=== PATIENT | male | born 1945 | race Caucasian/White ===

== ENCOUNTER 2017-10-08 13:17 | Emergency (ER) | payer MEDICARE, OTHER ==
[~2017-10-08] VITALS: Ht 185.4 cm; Wt 90.9 kg
[~2017-10-08 13:17] MED LIST: CITA20TA11 PO; CLOP75TA35 PO; FENO145T19 PO; GLIM1TAB46 PO; LANTUS SQ; LISI-600 PO; METF500T PO; NORCO10T PO; ROSU20TA PO; VARD10TA PO
[2017-10-08] MEDS ORDERED: normal saline 1000ML IV soln IV ONE (14:15)
[2017-10-08 14:25] LABS: BASOPHILS % (AUTO) 0.3 % (0-1); EOSINOPHILS # (AUTO) 0.3 X10'3 (0-0.9); EOSINOPHILS % (AUTO) 2.9 % (0-6); HEMATOCRIT 44.2 % (42.0-52.0); HEMOGLOBIN 14.8 g/dl (14.0-17.9); LYMPHOCYTES # (AUTO) 2.3 X10'3 (1.1-4.8); MEAN CORPUSCULAR HEMOGLOBIN 31.2 PG (27.0-31.0); MEAN CORPUSCULAR HGB CONC 33.4 % (33.0-36.5); MEAN CORPUSCULAR VOLUME 93.1 FL (78-98); MEAN PLATELET VOLUME 11.3 FL (7.4-10.4); MONOCYTES # (AUTO) 0.8 X10'3 (0-0.9); MONOCYTES % (AUTO) 8.7 % (2-12); NEUTROPHILS # (AUTO) 6.2 X10'3 (1.8-7.7); NEUTROPHILS % (AUTO) 64.1 % (42-75); PLATELET COUNT 279 X10'3 (140-440); RED BLOOD COUNT 4.75 X10'6 (4.70-6.10); RED CELL DISTRIBUTION WIDTH 13.7 % (11.5-14.5); WHITE BLOOD COUNT 9.7 X10'3 (4.5-11.0)
[2017-10-08 14:38] LABS: PARTIAL THROMBOPLASTIN TIME 26 SECONDS (22-32); PROTHROMBIN TIME 10.1 SECONDS (9.0-12.0)
[2017-10-08 14:50] LABS: LARGE PLATELETS MODERATE; PLATELET ESTIMATE NORMAL
[2017-10-08 14:51] LABS: ALANINE AMINOTRANSFERASE 23 U/L (12-78); ALBUMIN 3.7 G/DL (3.4-5.0); ALKALINE PHOSPHATASE 83 IU/L (46-116); ANION GAP 12 (8-16); ASPARTATE AMINO TRANSFERASE 13 U/L (10-37); BILIRUBIN,TOTAL 0.3 MG/DL (0.1-1.0); BLOOD UREA NITROGEN 34 MG/DL (7-18); CALCIUM 9.7 MG/DL (8.5-10.1); CHLORIDE 100 MMOL/L (99-107); GLUCOSE 287 MG/DL (70-104); MAGNESIUM 1.9 MG/DL (1.5-2.4); POTASSIUM 4.8 MMOL/L (3.5-5.1); SODIUM 138 MMOL/L (135-145); TOTAL CARBON DIOXIDE 25.6 MMOL/L (24-32); TOTAL PROTEIN 7.5 G/DL (6.4-8.2); eGFR 40 ML/MIN
[2017-10-08 16:58] VITALS: BP 175/79
== END 2017-10-08 17:02 | disposition home or self-care (01) ==
LOC: ER 13:17
DX: B34.9 Viral infection, unspecified (principal); E11.65 Type 2 diabetes mellitus with hyperglycemia; E86.0 Dehydration; I12.9 Hypertensive chronic kidney disease with stage 1 through stage 4 chronic kidney disease, or unspecified chronic kidney disease; E11.22 Type 2 diabetes mellitus with diabetic chronic kidney disease; N17.9 Acute kidney failure, unspecified; N18.9 Chronic kidney disease, unspecified; F32.9 Major depressive disorder, single episode, unspecified; F17.200 Nicotine dependence, unspecified, uncomplicated; Z86.73 Personal history of transient ischemic attack (TIA), and cerebral infarction without residual deficits; Z79.01 Long term (current) use of anticoagulants; Z79.4 Long term (current) use of insulin
CPT/HCPCS: 36415; 71045; 80053; 82948; 83605; 83735; 83880; 84484; 85025; 85610; 85730; 87040; 87502; 87503; 93005; 96361; 96374; 99285; J2270; J7030

== ENCOUNTER 2017-12-24 09:09 | Outpatient (CLI) | payer MEDICARE ==
[~2017-12-24 09:09] MED LIST changes: -FENO145T19 PO; +FENO145T36 PO
[2017-12-24 10:10] LABS: BASOPHILS % (AUTO) 0.4 % (0-1); EOSINOPHILS # (AUTO) 0.6 X10'3 (0-0.9); EOSINOPHILS % (AUTO) 6.8 % (0-6); HEMATOCRIT 39.7 % (42.0-52.0); HEMOGLOBIN 13.4 g/dl (14.0-17.9); LYMPHOCYTES # (AUTO) 2.2 X10'3 (1.1-4.8); LYMPHOCYTES % (AUTO) 27.1 % (21-51); MEAN CORPUSCULAR HEMOGLOBIN 31.9 PG (27.0-31.0); MEAN CORPUSCULAR HGB CONC 33.9 % (33.0-36.5); MEAN CORPUSCULAR VOLUME 94.1 FL (78-98); MONOCYTES # (AUTO) 0.5 X10'3 (0-0.9); MONOCYTES % (AUTO) 6.4 % (2-12); NEUTROPHILS # (AUTO) 4.9 X10'3 (1.8-7.7); NEUTROPHILS % (AUTO) 59.3 % (42-75); PLATELET COUNT 231 X10'3 (140-440); RED BLOOD COUNT 4.22 X10'6 (4.70-6.10); RED CELL DISTRIBUTION WIDTH 14.7 % (11.5-14.5); WHITE BLOOD COUNT 8.2 X10'3 (4.5-11.0)
[2017-12-24 10:20] LABS: ALBUMIN 3.8 G/DL (3.4-5.0); ANION GAP 13 (8-16); BLOOD UREA NITROGEN 27 MG/DL (7-18); BUN/CREATININE RATIO 19.6 (5.4-32.0); CALCIUM 9.3 MG/DL (8.5-10.1); CHLORIDE 107 MMOL/L (99-107); CREATININE 1.38 MG/DL (0.60-1.10); GLUCOSE 139 MG/DL (70-104); PARTIAL THROMBOPLASTIN TIME 25 SECONDS (22-32); PROTHROMBIN TIME 9.9 SECONDS (9.0-12.0); SODIUM 141 MMOL/L (135-145); TOTAL CARBON DIOXIDE 21.2 MMOL/L (24-32); eGFR 51 ML/MIN
[2017-12-24 11:06] LABS: PLATELET ESTIMATE NORMAL
[2017-12-24 11:07] LABS: LARGE PLATELETS FEW
== END 2017-12-24 23:59 | disposition home or self-care (01) ==
LOC: SSTAY O 09:09 → EDSTATUS 12-26 06:30
PROVIDERS: ATTEND Internal Medicine Interventional Cardiology
DX: I65.22 Occlusion and stenosis of left carotid artery (principal); I70.213 Atherosclerosis of native arteries of extremities with intermittent claudication, bilateral legs; I65.23 Occlusion and stenosis of bilateral carotid arteries; E78.4 Other hyperlipidemia; I35.0 Nonrheumatic aortic (valve) stenosis; F17.210 Nicotine dependence, cigarettes, uncomplicated; R07.2 Precordial pain; R01.1 Cardiac murmur, unspecified; I12.9 Hypertensive chronic kidney disease with stage 1 through stage 4 chronic kidney disease, or unspecified chronic kidney disease; E11.22 Type 2 diabetes mellitus with diabetic chronic kidney disease; N18.9 Chronic kidney disease, unspecified
CPT/HCPCS: 36415; 80048; 85025; 85610; 85730

== ENCOUNTER 2018-01-14 13:55 | Day surgery (SDC) | payer MEDICARE ==
[2018-01-10 11:01] LABS: BASOPHILS % (AUTO) 0.2 % (0-1); EOSINOPHILS # (AUTO) 0.4 X10'3 (0-0.9); EOSINOPHILS % (AUTO) 5.1 % (0-6); HEMOGLOBIN 12.6 g/dl (14.0-17.9); LYMPHOCYTES # (AUTO) 2.2 X10'3 (1.1-4.8); LYMPHOCYTES % (AUTO) 24.7 % (21-51); MEAN CORPUSCULAR HEMOGLOBIN 31.3 PG (27.0-31.0); MEAN CORPUSCULAR HGB CONC 33.3 % (33.0-36.5); MEAN CORPUSCULAR VOLUME 94.1 FL (78-98); MEAN PLATELET VOLUME 10.5 FL (7.4-10.4); MONOCYTES # (AUTO) 0.6 X10'3 (0-0.9); MONOCYTES % (AUTO) 6.8 % (2-12); NEUTROPHILS # (AUTO) 5.5 X10'3 (1.8-7.7); NEUTROPHILS % (AUTO) 63.2 % (42-75); PLATELET COUNT 224 X10'3 (140-440); RED BLOOD COUNT 4.04 X10'6 (4.70-6.10); RED CELL DISTRIBUTION WIDTH 15.2 % (11.5-14.5); WHITE BLOOD COUNT 8.8 X10'3 (4.5-11.0)
[2018-01-10 11:14] LABS: ALBUMIN 3.5 G/DL (3.4-5.0); ANION GAP 9 (8-16); BLOOD UREA NITROGEN 22 MG/DL (7-18); BUN/CREATININE RATIO 15.3 (5.4-32.0); CALCIUM 9.1 MG/DL (8.5-10.1); CHLORIDE 107 MMOL/L (99-107); CREATININE 1.44 MG/DL (0.60-1.10); GLUCOSE 210 MG/DL (70-104); POTASSIUM 4.2 MMOL/L (3.5-5.1); SODIUM 141 MMOL/L (135-145); TOTAL CARBON DIOXIDE 25.1 MMOL/L (24-32); eGFR 48 ML/MIN
[2018-01-10 11:15] LABS: PARTIAL THROMBOPLASTIN TIME 24 SECONDS (22-32)
[2018-01-14] VITALS (8 sets, daily range): BP systolic 132–151; BP diastolic 68–85
[~2018-01-14] VITALS: Ht 182.9 cm; Wt 95.1 kg
[2018-01-14] MEDS ORDERED: LORazepam 0.5 MG tablet PO PRN (14:20)
[2018-01-14] MEDS ORDERED: normal saline 1000ml 1,000 ML IV SCH (14:20)
[2018-01-14] MEDS ORDERED: diphenhydrAMINE 25mg capsule PO PRN (14:20)
[2018-01-14] MEDS ORDERED: ASPI-1265 PO (15:05)
[2018-01-14] MEDS ORDERED: PRAV40TA3 PO (15:05)
[2018-01-14] MEDS ORDERED: ERGO400C PO (15:05)
[2018-01-14] MEDS ORDERED: GLIM1TAB46 PO (15:05)
[2018-01-14] MEDS ORDERED: LIDOcaine 1% 30ml preserv. free vial ONE (16:39)
[2018-01-14] MEDS ORDERED: iohexol 350MG/ML 100ml bottle IV ONE (16:39)
[2018-01-14] MEDS ORDERED: midazolam 2 mg/2 ml injection ONE (16:40)
[2018-01-14] MEDS ORDERED: fentaNYL/PF 50MCG/1 ML 2ML syringe ONE (16:40)
[2018-01-14] MEDS ORDERED: proCHLORperazine 10 MG/2 ml inj IV PRN (18:20)
[2018-01-14] MEDS ORDERED: ondansetron/PF 4mg/2ml inj IV PRN (18:20)
[2018-01-14] MEDS ORDERED: OXAZEpam 15mg capsule PO PRN (18:20)
== END 2018-01-14 20:03 | disposition home or self-care (01) ==
LOC: SSTAY O 13:55
PROVIDERS: ATTEND Internal Medicine Interventional Cardiology
DX: I25.10 Atherosclerotic heart disease of native coronary artery without angina pectoris (principal); I45.19 Other right bundle-branch block; E78.5 Hyperlipidemia, unspecified; I65.22 Occlusion and stenosis of left carotid artery; I70.213 Atherosclerosis of native arteries of extremities with intermittent claudication, bilateral legs; I35.0 Nonrheumatic aortic (valve) stenosis; F17.210 Nicotine dependence, cigarettes, uncomplicated; F32.9 Major depressive disorder, single episode, unspecified; J44.9 Chronic obstructive pulmonary disease, unspecified; I12.9 Hypertensive chronic kidney disease with stage 1 through stage 4 chronic kidney disease, or unspecified chronic kidney disease; E11.22 Type 2 diabetes mellitus with diabetic chronic kidney disease; N18.9 Chronic kidney disease, unspecified; Z86.79 Personal history of other diseases of the circulatory system; Z86.73 Personal history of transient ischemic attack (TIA), and cerebral infarction without residual deficits; Z95.5 Presence of coronary angioplasty implant and graft; Z72.89 Other problems related to lifestyle; Z79.82 Long term (current) use of aspirin; Z79.4 Long term (current) use of insulin; Z79.84 Long term (current) use of oral hypoglycemic drugs; Z98.890 Other specified postprocedural states; Z79.899 Other long term (current) drug therapy
CPT/HCPCS: 36415; 80048; 82948; 85025; 85610; 85730; 93005; 93458; 99152; A6257; C1769; J1644; J2250; J3010; J3490; J7030; Q0163; Q9967

== ENCOUNTER 2018-03-22 02:26 | Inpatient (IN) | payer MEDICARE, OTHER ==
[~2018-03-22] VITALS: Ht 182.9 cm; Wt 80.0 kg
[~2018-03-22 02:26] MED LIST changes: +ASPI-1265 PO; +CITA-278 PO; -CITA20TA11 PO; +ERGO400C PO; -NORCO10T PO; +PRAV40TA3 PO
[2018-03-22] MEDS ORDERED: HYDROcodone/acetaminophen 10/325mg tab PO ONE (02:40)
[2018-03-22 04:43] LABS: BASOPHILS % (AUTO) 0.3 % (0-1); EOSINOPHILS % (AUTO) 0.1 % (0-6); HEMATOCRIT 35.5 % (42.0-52.0); LYMPHOCYTES # (AUTO) 0.9 X10'3 (1.1-4.8); LYMPHOCYTES % (AUTO) 6.9 % (21-51); MEAN CORPUSCULAR HEMOGLOBIN 31.2 PG (27.0-31.0); MEAN CORPUSCULAR HGB CONC 33.6 % (33.0-36.5); MEAN CORPUSCULAR VOLUME 92.8 FL (78-98); MEAN PLATELET VOLUME 11.9 FL (7.4-10.4); MONOCYTES # (AUTO) 0.3 X10'3 (0-0.9); MONOCYTES % (AUTO) 2.4 % (2-12); NEUTROPHILS # (AUTO) 11.5 X10'3 (1.8-7.7); NEUTROPHILS % (AUTO) 90.3 % (42-75); PLATELET COUNT 180 X10'3 (140-440); RED BLOOD COUNT 3.83 X10'6 (4.70-6.10); RED CELL DISTRIBUTION WIDTH 14.4 % (11.5-14.5); WHITE BLOOD COUNT 12.7 X10'3 (4.5-11.0)
[2018-03-22 05:01] LABS: ALANINE AMINOTRANSFERASE 18 U/L (12-78); ALBUMIN 3.1 G/DL (3.4-5.0); ALBUMIN/GLOBULIN RATIO 1.1 (1.1-1.5); ALKALINE PHOSPHATASE 80 IU/L (46-116); ANION GAP 12 (8-16); ASPARTATE AMINO TRANSFERASE 7 U/L (10-37); BILIRUBIN,TOTAL 0.2 MG/DL (0.1-1.0); BLOOD UREA NITROGEN 39 MG/DL (7-18); BUN/CREATININE RATIO 16.3 (5.4-32.0); CALCIUM 8.8 MG/DL (8.5-10.1); CHLORIDE 98 MMOL/L (99-107); MAGNESIUM 1.4 MG/DL (1.5-2.4); POTASSIUM 4.6 MMOL/L (3.5-5.1); SODIUM 132 MMOL/L (135-145); TOTAL CARBON DIOXIDE 22.5 MMOL/L (24-32); eGFR 27 ML/MIN
[2018-03-22 05:06] LABS: GLUCOSE 529 MG/DL (70-104)
[2018-03-22] MEDS ORDERED: heparin 10,000 units/1 ML INJ IV PRN (05:10)
[2018-03-22] MEDS ORDERED: heparin 10,000 units/1 ML INJ IV ONE (05:10)
[2018-03-22] MEDS ORDERED: magnesium/D5W IVPB 100 ML IV ONE (05:10)
[2018-03-22] MEDS ORDERED: normal saline 1000ML IV soln IVB ONE (05:10)
[2018-03-22 05:18] LABS: PARTIAL THROMBOPLASTIN TIME 23 SECONDS (22-32)
[2018-03-22] MEDS ORDERED: insulin regular, human 10 units/0.1 ml syringe IV ONE (05:20)
[2018-03-22] MEDS ORDERED: bisacodyl 10mg suppository rectal RC PRN (05:40)
[2018-03-22] MEDS ORDERED: magnesium hydroxide 30ml (MOM) UD suspension PO PRN (05:40)
[2018-03-22] MEDS ORDERED: ondansetron/PF 4mg/2ml inj IV PRN (05:40)
[2018-03-22] MEDS ORDERED: acetaminophen 325mg tablet PO PRN (05:40)
[2018-03-22] MEDS ORDERED: potassium Cl 40MEQ/NS 500ml 500 ML IV PRN ×2 (05:50)
[2018-03-22] MEDS ORDERED: potassium Cl 20 mEq SR tablet PO PRN ×2 (05:50)
[2018-03-22] MEDS: normal saline 1000ml 1,000 ML IV SCH ×2 (05:57→09:06)
[2018-03-22] MEDS ORDERED: dextrose 50%-water 50ml dispensing syringe IV PRN ×2 (06:15)
[2018-03-22] MEDS ORDERED: glucagon, human recombinant 1mg kit SUBCUT PRN (06:15)
[2018-03-22] MEDS ORDERED: dextrose ORAL solution 15 GM/59 ML bottle PO PRN ×2 (06:15)
[2018-03-22] MEDS ORDERED: MESSAGE TO PHARMACY PO ONE (06:15)
[2018-03-22 06:53] LABS: HEMOGLOBIN A1C 11.3 % (4.5-6.2)
[2018-03-22 07:43] LABS: LARGE PLATELETS FEW; PLATELET ESTIMATE NORMAL
[2018-03-22] MEDS ORDERED: clopidogrel 75mg tablet PO SCH (08:00)
[2018-03-22] MEDS: fenofibrate 145mg tablet PO SCH (08:00)
[2018-03-22] MEDS: atorvastatin 20mg tablet PO SCH (08:45)
[2018-03-22] MEDS: lisinopril 20mg tablet PO SCH ×2 (08:46→21:02)
[2018-03-22] MEDS: aspirin 81mg tab.chew PO SCH (08:46)
[2018-03-22] MEDS: citalopram 20mg tablet PO SCH (08:46)
[2018-03-22 10:00] VITALS: BP 161/76
[2018-03-22 11:26] LABS: ALBUMIN 3.1 G/DL (3.4-5.0); ANION GAP 10 (8-16); BLOOD UREA NITROGEN 40 MG/DL (7-18); CALCIUM 8.1 MG/DL (8.5-10.1); CHLORIDE 103 MMOL/L (99-107); CREATININE 2.35 MG/DL (0.60-1.10); GLUCOSE 217 MG/DL (70-104); SODIUM 136 MMOL/L (135-145); TOTAL CARBON DIOXIDE 22.8 MMOL/L (24-32); eGFR 27 ML/MIN
[2018-03-22] MEDS ORDERED: iohexol 350MG/ML 100ml bottle IV ONE (13:19)
[2018-03-22] MEDS ORDERED: iohexol 350 MG/ML 50ML vial IV ONE (13:19)
[2018-03-22 15:00] VITALS: BP 145/82
[2018-03-22] MEDS: sodium bicarbonate (8.4%) inj. 100 MEQ in dextrose 5%-water 1,000 ML IV SCH (15:29)
[2018-03-22 19:00] VITALS: BP 120/55
[2018-03-22] MEDS: insulin glargine (Lantus) pen - multi-dose SQ SCH (21:01)
[2018-03-22 23:00] VITALS: BP 138/61
[2018-03-23] MEDS: nicotine 21mg patch - 24 hr TD SCH ×2 (00:23→07:00)
[2018-03-23] MEDS: sodium bicarbonate (8.4%) inj. 100 MEQ in dextrose 5%-water 1,000 ML IV SCH ×3 (00:45→20:47)
[2018-03-23 02:59] LABS: BASOPHILS % (AUTO) 0.3 % (0-1); EOSINOPHILS # (AUTO) 0.3 X10'3 (0-0.9); EOSINOPHILS % (AUTO) 3.8 % (0-6); HEMATOCRIT 34.1 % (42.0-52.0); HEMOGLOBIN 11.4 g/dl (14.0-17.9); LYMPHOCYTES # (AUTO) 1.7 X10'3 (1.1-4.8); LYMPHOCYTES % (AUTO) 19.5 % (21-51); MEAN CORPUSCULAR HEMOGLOBIN 31.1 PG (27.0-31.0); MEAN CORPUSCULAR HGB CONC 33.5 % (33.0-36.5); MEAN CORPUSCULAR VOLUME 92.7 FL (78-98); MEAN PLATELET VOLUME 11.7 FL (7.4-10.4); MONOCYTES # (AUTO) 0.8 X10'3 (0-0.9); MONOCYTES % (AUTO) 9.4 % (2-12); NEUTROPHILS # (AUTO) 5.8 X10'3 (1.8-7.7); PLATELET COUNT 161 X10'3 (140-440); RED BLOOD COUNT 3.68 X10'6 (4.70-6.10); RED CELL DISTRIBUTION WIDTH 14.3 % (11.5-14.5); WHITE BLOOD COUNT 8.6 X10'3 (4.5-11.0)
[2018-03-23 03:00] VITALS: BP 156/69
[2018-03-23 03:02] LABS: ALANINE AMINOTRANSFERASE 69 U/L (12-78); ALBUMIN 2.8 G/DL (3.4-5.0); ALKALINE PHOSPHATASE 89 IU/L (46-116); ANION GAP 8 (8-16); ASPARTATE AMINO TRANSFERASE 94 U/L (10-37); BILIRUBIN,TOTAL 0.2 MG/DL (0.1-1.0); BLOOD UREA NITROGEN 31 MG/DL (7-18); BUN/CREATININE RATIO 17.5 (5.4-32.0); CALCIUM 8.5 MG/DL (8.5-10.1); CHLORIDE 108 MMOL/L (99-107); CREATININE 1.77 MG/DL (0.60-1.10); GLUCOSE 164 MG/DL (70-104); MAGNESIUM 1.7 MG/DL (1.5-2.4); POTASSIUM 3.7 MMOL/L (3.5-5.1); SODIUM 141 MMOL/L (135-145); TOTAL CARBON DIOXIDE 24.8 MMOL/L (24-32); TOTAL PROTEIN 5.6 G/DL (6.4-8.2); eGFR 38 ML/MIN
[2018-03-23 04:22] LABS: LARGE PLATELETS FEW; PLATELET ESTIMATE NORMAL
[2018-03-23 06:00] VITALS: BP 163/68
[2018-03-23] MEDS: aspirin 81mg tab.chew PO SCH (07:00)
[2018-03-23] MEDS: citalopram 20mg tablet PO SCH (07:00)
[2018-03-23] MEDS: lisinopril 20mg tablet PO SCH ×2 (07:00→20:47)
[2018-03-23] MEDS: atorvastatin 20mg tablet PO SCH (07:01)
[2018-03-23] MEDS: fenofibrate 145mg tablet PO SCH (08:00)
[2018-03-23 15:00] VITALS: BP 125/80
[2018-03-23 19:00] VITALS: BP 150/73
[2018-03-23] MEDS: insulin glargine (Lantus) pen - multi-dose SQ SCH (20:57)
[2018-03-23 23:00] VITALS: BP 173/73
[2018-03-24 03:00] VITALS: BP 143/68
[2018-03-24 05:07] LABS: BASOPHILS % (AUTO) 0.4 % (0-1); EOSINOPHILS # (AUTO) 0.3 X10'3 (0-0.9); EOSINOPHILS % (AUTO) 5.5 % (0-6); HEMATOCRIT 35.1 % (42.0-52.0); HEMOGLOBIN 11.7 g/dl (14.0-17.9); LYMPHOCYTES # (AUTO) 1.6 X10'3 (1.1-4.8); LYMPHOCYTES % (AUTO) 26.1 % (21-51); MEAN CORPUSCULAR HEMOGLOBIN 30.9 PG (27.0-31.0); MEAN CORPUSCULAR HGB CONC 33.3 % (33.0-36.5); MEAN PLATELET VOLUME 11.8 FL (7.4-10.4); MONOCYTES # (AUTO) 0.7 X10'3 (0-0.9); MONOCYTES % (AUTO) 11.8 % (2-12); NEUTROPHILS # (AUTO) 3.5 X10'3 (1.8-7.7); NEUTROPHILS % (AUTO) 56.2 % (42-75); PLATELET COUNT 157 X10'3 (140-440); RED BLOOD COUNT 3.77 X10'6 (4.70-6.10); WHITE BLOOD COUNT 6.3 X10'3 (4.5-11.0)
[2018-03-24 05:27] LABS: PARTIAL THROMBOPLASTIN TIME 69 SECONDS (22-32); PROTHROMBIN TIME 10.5 SECONDS (9.0-12.0)
[2018-03-24 05:43] LABS: ALANINE AMINOTRANSFERASE 106 U/L (12-78); ALBUMIN 2.8 G/DL (3.4-5.0); ALBUMIN/GLOBULIN RATIO 0.9 (1.1-1.5); ALKALINE PHOSPHATASE 100 IU/L (46-116); ANION GAP 5 (8-16); ASPARTATE AMINO TRANSFERASE 90 U/L (10-37); BILIRUBIN,TOTAL 0.3 MG/DL (0.1-1.0); BLOOD UREA NITROGEN 18 MG/DL (7-18); BUN/CREATININE RATIO 12.1 (5.4-32.0); CALCIUM 8.6 MG/DL (8.5-10.1); CHLORIDE 106 MMOL/L (99-107); CREATININE 1.49 MG/DL (0.60-1.10); GLUCOSE 190 MG/DL (70-104); MAGNESIUM 1.6 MG/DL (1.5-2.4); POTASSIUM 3.9 MMOL/L (3.5-5.1); SODIUM 142 MMOL/L (135-145); TOTAL CARBON DIOXIDE 30.9 MMOL/L (24-32); TOTAL PROTEIN 5.8 G/DL (6.4-8.2); eGFR 46 ML/MIN
[2018-03-24 06:00] VITALS: BP 161/70
[2018-03-24 07:38] LABS: LARGE PLATELETS FEW; PLATELET ESTIMATE NORMAL
[2018-03-24] MEDS: lisinopril 20mg tablet PO SCH (08:20)
[2018-03-24] MEDS: atorvastatin 20mg tablet PO SCH (08:20)
[2018-03-24] MEDS: fenofibrate 145mg tablet PO SCH (08:20)
[2018-03-24] MEDS: citalopram 20mg tablet PO SCH (08:21)
[2018-03-24] MEDS: aspirin 81mg tab.chew PO SCH (08:22)
[2018-03-24] MEDS: nicotine 21mg patch - 24 hr TD SCH (08:23)
[2018-03-24] MEDS ORDERED: hydrALAZINE 20mg/ml inj. IV PRN (08:45)
[2018-03-24] MEDS: insulin Lispro (HumaLOG) vial - multi-dose SQ SCH ×2 (09:37→13:22)
[2018-03-24] MEDS: sodium bicarbonate (8.4%) inj. 100 MEQ in dextrose 5%-water 1,000 ML IV SCH (10:08)
[2018-03-24 11:00] VITALS: BP 172/80
[2018-03-24 12:59] VITALS: BP 149/59
[2018-03-24 15:00] VITALS: BP 174/84
== END 2018-03-24 19:33 | disposition left against medical advice (07) | DRG 300 ==
LOC: ER 02:26 → ED HOLD 05:39 → PCU 3S 10:05
PROVIDERS: ADMIT Emergency Medicine; ATTEND Family Medicine
PROC: B4201ZZ Computerized Tomography (CT Scan) of Abdominal Aorta using Low Osmolar Contrast (ICD-10-PCS; principal; 2018-03-22)
PROC: B42H1ZZ Computerized Tomography (CT Scan) of Bilateral Lower Extremity Arteries using Low Osmolar Contrast (ICD-10-PCS; 2018-03-22)
PROC: B42H1ZZ Computerized Tomography (CT Scan) of Bilateral Lower Extremity Arteries using Low Osmolar Contrast (ICD-10-PCS; 2018-03-22)
PROC: B4211ZZ Computerized Tomography (CT Scan) of Celiac Artery using Low Osmolar Contrast (ICD-10-PCS; 2018-03-22)
PROC: B4241ZZ Computerized Tomography (CT Scan) of Superior Mesenteric Artery using Low Osmolar Contrast (ICD-10-PCS; 2018-03-22)
PROC: B4281ZZ Computerized Tomography (CT Scan) of Bilateral Renal Arteries using Low Osmolar Contrast (ICD-10-PCS; 2018-03-22)
DX: E11.51 Type 2 diabetes mellitus with diabetic peripheral angiopathy without gangrene (principal); N17.9 Acute kidney failure, unspecified; E11.22 Type 2 diabetes mellitus with diabetic chronic kidney disease; E11.65 Type 2 diabetes mellitus with hyperglycemia; I25.10 Atherosclerotic heart disease of native coronary artery without angina pectoris; E78.5 Hyperlipidemia, unspecified; I12.9 Hypertensive chronic kidney disease with stage 1 through stage 4 chronic kidney disease, or unspecified chronic kidney disease; J44.9 Chronic obstructive pulmonary disease, unspecified; N18.9 Chronic kidney disease, unspecified; F32.9 Major depressive disorder, single episode, unspecified; G89.29 Other chronic pain; M48.061 Spinal stenosis, lumbar region without neurogenic claudication; M54.5 Low back pain; F17.210 Nicotine dependence, cigarettes, uncomplicated; Z53.21 Procedure and treatment not carried out due to patient leaving prior to being seen by health care provider; Z79.02 Long term (current) use of antithrombotics/antiplatelets; Z79.4 Long term (current) use of insulin; Z79.82 Long term (current) use of aspirin; Z86.73 Personal history of transient ischemic attack (TIA), and cerebral infarction without residual deficits; Z71.6 Tobacco abuse counseling
CPT/HCPCS: 36415; 75635; 80048; 80053; 82948; 83036; 83605; 83735; 85025; 85610; 85730; 87070; 93922; 93925; 99291; A6446; A6449; J0360; J1644; J1815; J7030; Q9967